=== PATIENT | male | born 1950 | race African-American/Black ===

== ENCOUNTER 2023-06-14 14:29 | Emergency (ER) | payer OTHER ==
[2023-06-14 14:53] VITALS: BP 160/81; PULSE 61; RESP 17; TEMP 98; BMI 29.5
[2023-06-14] MEDS ORDERED: ACETAMINOPHEN 500 MG TABLET (FP) ONE (20:08)
[2023-06-14] MEDS: ACETAMINOPHEN 500 MG TABLET (FP) PO ONE (20:15)
== END 2023-06-14 20:16 | disposition home or self-care (01) ==
LOC: JERFT 14:29
DX: M25.561 Pain in right knee (principal); M25.562 Pain in left knee; Y99.0 Civilian activity done for income or pay
CPT/HCPCS: 99283-25